=== PATIENT | female | born 1985 | race Caucasian/White ===

== ENCOUNTER 2021-01-01 08:32 | Inpatient (IN) ==
[2021-01-01] MEDS ORDERED: Lidocaine 1% 20 ML MDV ID PRN (08:47)
[2021-01-01] MEDS ORDERED: Metoclopramide 10 MG/2 ML VIAL IVP PRN (08:47)
[2021-01-01] MEDS ORDERED: Famotidine 20 MG/2 ML VIAL IVP PRN (08:47)
[2021-01-01] MEDS ORDERED: Ondansetron 4 MG/2 ML VIAL IVP PRN (08:47)
[2021-01-01] MEDS ORDERED: *HR* Nalbuphine 10 MG/ML AMPUL IV PRN (08:47)
[2021-01-01] MEDS ORDERED: Azithromycin 500 MG in 0.9 % Sodium Chloride 250 ML IVPB PRN (08:47)
[2021-01-01 09:32] LABS: Basophils % 0.4 %; Eosinophils # 0.2 K/mcL (0.0-0.6); Eosinophils % 2.2 %; Hematocrit 41.8 % (35.3-44.9); Hemoglobin 14.2 g/dL (11.5-15.4); Immature Granulocytes % 0.4 % (0-4); Lymphocytes # 2.1 K/mcL (0.6-4.6); Lymphocytes % 24.8 %; Mean Corpuscular Hemoglobin 31.5 pg (28.0-33.3); Mean Corpuscular Volume 92.7 fL (83.0-100.0); Mean Platelet Volume 12.2 fL (9.4-12.4); Monocytes # 0.7 K/mcL (0.0-1.3); Monocytes % 7.9 %; Neutrophils # 5.5 K/mcL (1.6-8.9); Platelet Count 201 K/mcL (140-400); Red Blood Count 4.51 M/mcL (3.82-4.97); Red Cell Distribution Width 12.9 % (11.5-14.5); Segmented Neutrophils % 64.3 %; White Blood Count 8.5 K/mcL (4.3-11.1)
[2021-01-01] MEDS: Ringers Solution, Lactated 1,000 ML IVC SCH ×3 (09:34→18:55)
[2021-01-01] MEDS ORDERED: EPHEDrine 50 MG/ML VIAL IVP PRN (10:03)
[2021-01-01 10:06] LABS: Influenza A PCR Negative (Negative); Influenza B PCR Negative (Negative); Resp. Syncytial Virus PCR Negative (Negative)
[2021-01-01 10:18] LABS: SARS-CoV-2 by PCR (In House) Negative (Negative)
[2021-01-01] MEDS ORDERED: Ropivacaine/PF 0.2% 20 ML VIAL ONE (11:10)
[2021-01-01] MEDS ORDERED: *HR* FentaNYL (PF) 100 MCG/2 ML VIAL ONE (11:10)
[2021-01-01] MEDS: Epidural Premix (fent/bupiv) 110 ML EP SCH ×2 (11:32→18:18)
[2021-01-01 11:45] LABS: Amphetamine Screen,Urine Negative ng/mL (Cutoff=1000); Barbiturate Screen,Urine Negative ng/mL (Cutoff=200); Benzodiazepines Screen,Urine Negative ng/mL (Cutoff=200); Cannabinoid Screen,Urine Positive ng/mL (Cutoff = 50); Cocaine Screen,Urine Negative ng/mL (Cutoff= 300); Opiate Screen,Urine Negative ng/mL (Cutoff=300); Phencyclidine Screen,Urine Negative ng/mL (Cutoff=25)
[2021-01-01] MEDS ORDERED: Oxytocin 20 units/ LR 1000 mL 20 UNIT/1,000 ML BAG IVC SCH ×2 (14:45→22:19)
[2021-01-01] MEDS ORDERED: Measles/Mumps/Rubella Vacc 0.5 ML VIAL SQ PRN (22:19)
[2021-01-01] MEDS ORDERED: Benzocaine/Menthol 56 GM AEROSOL SPRAY TP PRN (22:19)
[2021-01-01] MEDS ORDERED: Ondansetron ODT 4 MG TAB.RAPDIS SL PRN (22:19)
[2021-01-01] MEDS ORDERED: Oxytocin 20 units/ LR 1000 mL 20 UNIT/1,000 ML BAG IVC ONE (22:19)
[2021-01-01] MEDS ORDERED: Lanolin 7 G OINT...G. TP PRN (22:19)
[2021-01-01] MEDS ORDERED: Rho Immune Globulin 1,500 UNIT SYRINGE IM PRN (22:19)
[2021-01-01] MEDS ORDERED: Acetaminophen 325 MG TABLET PO SCH (22:30)
[2021-01-01] MEDS ORDERED: Ibuprofen 600 MG TABLET PO SCH (23:00)
[2021-01-02 05:34] LABS: Basophils % 0.2 %; Eosinophils # 0.2 K/mcL (0.0-0.6); Eosinophils % 1.8 %; Hematocrit 36.4 % (35.3-44.9); Immature Granulocytes % 0.3 % (0-4); Lymphocytes # 2.3 K/mcL (0.6-4.6); Lymphocytes % 19.1 %; Mean Corpuscular HGB Conc 33.5 g/dL (31.6-35.5); Mean Corpuscular Volume 92.6 fL (83.0-100.0); Mean Platelet Volume 12.7 fL (9.4-12.4); Monocytes % 8.4 %; Neutrophils # 8.4 K/mcL (1.6-8.9); Platelet Count 153 K/mcL (140-400); Red Blood Count 3.93 M/mcL (3.82-4.97); Red Cell Distribution Width 12.6 % (11.5-14.5); Segmented Neutrophils % 70.2 %
[2021-01-02 05:36] LABS: Hemoglobin 12.2 g/dL (11.5-15.4)
[2021-01-02 08:51] VITALS: BP 133/89; PULSE 54; TEMP 97.9; O2SAT 100
[2021-01-02] MEDS ORDERED: Prenatal Vit/FA 1 EACH TABLET PO SCH (09:00)
== END 2021-01-02 12:27 | disposition home or self-care (01) | DRG 542 ==
LOC: 1NENULAB 08:32 → 1NENUOBS 01-02 00:18
PROVIDERS: ADMIT Obstetrics & Gynecology; ATTEND Obstetrics & Gynecology